=== PATIENT | female | born 1950 | race Caucasian/White ===

== ENCOUNTER → 2016-11-17 | Outpatient (CLI) | payer MEDICARE ==
[2014-08-12 13:10] VITALS: BP 116/72
[~2016-11-17] MED LIST: IBUP-1007 PO; LEVO75TA5 PO; LORA-434 PO; OMEP40CA5 PO; PARO20TA55 PO
--- NOTE | 2016-11-20 09:40 | EKG ---
[facility] [address] [place] [address] Test Date: 2016-11-17 Test Time: 07:38:09 Pat Name: INDRA ABRAHAM Department: Room: Gender: F Frameman: Shanel Damon : 1950 Requested By: SCOTT HOOVER Order Number: [id number] Reading MD: Scott Hoover Interpretive Statements Pt in sinus rhythm with PAC's. No significant dysrhythmia Electronically Signed On 11-21-2016 14:17:05 CDT by Scott Hoover
== END | disposition home or self-care (01) ==
LOC: EKG 12:48
PROVIDERS: ATTEND Family Medicine
DX: R00.2 Palpitations (principal)
CPT/HCPCS: 93225; 93226

== ENCOUNTER → 2017-01-14 | Outpatient (CLI) | payer MEDICARE ==
[2014-08-12 13:10] VITALS: BP 116/72
[~2017-01-14] MED LIST changes: +BUPIVACAINE MPF 0.5% 10 ML VIAL for KCIC. IJ ONE; +CITA10TA4 PO; +IOHEXOL 300 MG/ML 10ML VIAL. INT ART ONE; +LIDOCAINE 1% Multi-Dose 20 ML VIAL. ID ONE; +methylPREDNISolone ACETATE 40 MG/ML VIAL. INT ART ONE
--- NOTE | 2017-01-14 13:48 | KCIC ---
EXAM: Fluoroscopic guided therapeutic right hip injection. HISTORY: Pain for TECHNIQUE: The risks of the procedure were discussed with the patient and written and verbal consent was obtained. A time out was performed. Fluoroscopic imaging of the right hip was performed and a site overlying the joint space was selected for needle entry. The skin overlying this region was sterilely prepped, draped and infiltrated with 1% lidocaine. A spinal needle was then advanced into the joint space with fluoroscopic guidance. A solution containing 2 cc Depo-Medrol, 4 cc Marcaine, 4 cc Omnipaque 304 cc lidocaine was injected into the joint space. Fluoroscopic images demonstrate intraarticular accumulation of contrast. The needle was removed and a sterile bandage was placed at the needle entry site. The patient tolerated the procedure without difficulty and was discharged in stable condition. The total fluoroscopy time was 34 seconds. A single fluoroscopic image was obtained. IMPRESSION: Successful fluoroscopic guided therapeutic right hip injection. Electronically signed by: Sophia Eli MD (01/14/2017 1:44 PM)
== END | disposition home or self-care (01) ==
LOC: KCIC 12:31
PROVIDERS: ATTEND Nurse Practitioner Gerontology
DX: M25.551 Pain in right hip (principal); G89.29 Other chronic pain
CPT/HCPCS: 20610; 77002; Q9967

== ENCOUNTER → 2017-06-30 | Outpatient (CLI) | payer MEDICARE ==
[2014-08-12 13:10] VITALS: BP 116/72
[~2017-06-30] VITALS: Ht 167.6 cm; Wt 89.4 kg
[~2017-06-30] MED LIST changes: -BUPIVACAINE MPF 0.5% 10 ML VIAL for KCIC. IJ ONE; -IOHEXOL 300 MG/ML 10ML VIAL. INT ART ONE; -LIDOCAINE 1% Multi-Dose 20 ML VIAL. ID ONE; -PARO20TA55 PO; +PARO20TA99 PO; +SINCALIDE 1.8 MCG in IV NORMAL SALINE 50ML 30 ML IV ONE; -methylPREDNISolone ACETATE 40 MG/ML VIAL. INT ART ONE
--- NOTE | 2017-06-30 15:49 | RAD ---
Radionuclide hepatobiliary scan with gallbladder ejection fraction, 06/30/2017: History: Gallstones, abdominal pain Following IV injection of 5.2 mCi of technetium 99m Choletec there was prompt uptake of the radionuclide from the blood stream by the liver. Activity is present in the bile ducts and gallbladder at 15 minutes. Initial imaging obtained out to one hour showed increasing activity in the gallbladder without extension into the small bowel. Following IV injection of 1.8 mcg of cholecystokinin, additional imaging was performed. There is good gallbladder emptying with the gallbladder ejection fraction calculated at 93%. Small bowel activity did develop after the cholecystokinin injection. IMPRESSION: 1. No evidence of cystic duct or common bile duct obstruction. 2. The gallbladder ejection fraction is 93%.
== END | disposition home or self-care (01) ==
LOC: NM 10:11
PROVIDERS: ATTEND Physician Assistant Medical
DX: K80.20 Calculus of gallbladder without cholecystitis without obstruction (principal)
CPT/HCPCS: 78226; 96374; 96375; A9537; J2805

== ENCOUNTER → 2017-07-27 | Outpatient (CLI) | payer MEDICARE ==
[2014-08-12 13:10] VITALS: BP 116/72
[~2017-07-27] MED LIST changes: -SINCALIDE 1.8 MCG in IV NORMAL SALINE 50ML 30 ML IV ONE
--- NOTE | 2017-07-27 16:21 | KCIC ---
CERVICAL SPINE 5V History: Chronic neck pain, cervical stenosis Comparison: None. Findings: 5 views cervical spine are submitted. There is moderate to severe degenerative disc disease C5-C6 and C6-7 and to lesser degree at C3-4 and C4-5. There is spondylosis at the same levels. There is mild reversal of the lordotic curvature centered at C3-4. Cervical vertebral body stature and AP alignment are adequate. There is uncovertebral degenerative change which contributes to neural foramina compromise greatest on the right at C4-5, C5-C6 and to lesser degree C3-4 and also on the left at C5-C6 and to lesser degree C4-5 and C3-4. There is multilevel facet degenerative change. Impression: 1. There is multilevel cervical neural foramina compromise due to facet and uncovertebral degenerative change. 2. The is multilevel degenerative disc disease and spondylosis greatest C5-C6 and C6-7 and to lesser degree at C4-5 and C3-4. Electronically signed by: Espinoza Greenfield MD (07/27/2017 4:18 PM) [facility]-[id number]
== END | disposition home or self-care (01) ==
LOC: KCIC 15:48
PROVIDERS: ATTEND Family Medicine
DX: M48.02 Spinal stenosis, cervical region (principal); M50.322 Other cervical disc degeneration at C5-C6 level; M50.323 Other cervical disc degeneration at C6-C7 level; M47.892 Other spondylosis, cervical region
CPT/HCPCS: 72050

== ENCOUNTER → 2017-10-28 | Outpatient (CLI) | payer MEDICARE | END | disposition home or self-care (01) | LOC: KCIC CT 12:58 | DX: J32.9 Chronic sinusitis, unspecified (principal); K02.9 Dental caries, unspecified; K04.7 Periapical abscess without sinus | CPT/HCPCS: 70486 ==

== ENCOUNTER 2020-06-16 16:04 | Emergency (ER) | payer MEDICARE ==
[~2020-06-16] VITALS: Ht 167.6 cm; Wt 95.0 kg
[~2020-06-16 16:04] MED LIST changes: +OMEP40CA45 PO; -OMEP40CA5 PO
[2020-06-16 16:30] VITALS: BP 149/63
--- NOTE | 2020-06-16 17:06 | PHYS DOC ---
Past Medical History Past Medical History: Anxiety, Arthritis, GERD, Hypothyroid, Other Additional Past Medical Histor: insomnia,gallstones,tendonitis-rt.hip, knee,shoulder Past Surgical History: Other Additional Past Surgical Histo: Right total knee, right hip, bunionectomy Smoking Status: Former Smoker Alcohol Use: None Drug Use: None General Adult EDM: Chief Complaint: LOWER EXT PAIN HPI: HPI: 69-year-old female past medical history significant for anxiety depression, GERD with chronic persistent osteoarthritis, presents the ED with complaints of worsening left anterior knee pain that started shortly after patient finished physical therapy session (has had only 2-3 sessions). Patient has had known left knee osteoarthritis for over 5 years. Denies any blunt trauma or known exacerbating incident that worsened her pain. Is concerned she tore her meniscus and is requesting a steroid injection. Follows with Dr. Ortiz, orthopedic surgery at [facility] and last had a steroid joint injection in February or March of this year. Is also requesting a referral so that patient can get into see Dr. Ortiz sooner. Does not follow with pain management. Takes Motrin 800mgs 1-2 times per day and has been applying warm compresses and following "RICE" instructions. Walks with a cane and states ever since she had her right hip replaced her left leg has been shorter than her right. Is able to bear weight on left knee, cannot fully straighten left knee. No unilateral lower extremity edema, rash, joint swelling or fever. Review of Systems: Review of Systems: Constitutional: Denies fever or chills. [] Eyes: Denies change in visual acuity. [] HENT: Denies nasal congestion or sore throat. [] Respiratory: Denies cough or shortness of breath. [] Cardiovascular: Denies chest pain or edema. [] GI: Denies abdominal pain, nausea, vomiting, bloody stools or diarrhea. [] : Denies dysuria or hematuria Musculoskeletal: Denies back pain or cva ttp Integument: Denies rash. [] Neurologic: Denies headache, focal weakness or sensory changes. [] Endocrine: Denies polyuria or polydipsia. [] Lymphatic: Denies swollen glands. [] Psychiatric: Denies depression or anxiety. [] Heart Score: Risk Factors: Risk Factors: DM, Current or recent (<one month) smoker, HTN, HLP, family history of CAD, obesity. Risk Scores: Score 0 - 3: 2.5% MACE over next 6 weeks - Discharge Home Score 4 - 6: 20.3% MACE over next 6 weeks - Admit for Clinical Observation Score 7 - 10: 72.7% MACE over next 6 weeks - Early Invasive Strategies Allergies: Allergies: Allergies Coded Allergies Type Severity Reaction Last Updated Verified amoxicillin Allergy Severe nausea and vomiting 08/12/14 Yes clavulanic acid Allergy Severe nausea and vomiting 08/12/14 Yes naproxen Allergy Intermediate nausea and vomiting. 08/12/14 Yes propoxyphene Allergy Intermediate "blood feels like it's on fire" 08/12/14 Yes Physical Exam: PE: Constitutional: Well developed, well nourished, no acute distress, non-toxic appearance. [] HENT: Normocephalic, atraumatic, Eyes: EOMI, conjunctiva normal, no discharge. [] Neck: Normal range of motion, supple, Cardiovascular: S1/2 present Lungs & Thorax: bl equal chest rise, speaking in full sentences Abdomen: soft, no tenderness, Skin: Warm, dry, no erythema, no rash. [] Back: No tenderness, no CVA tenderness. [] Extremities: left anterior patella ttp - no joint effusion/warmth/erythema, bears weight on left leg/walks with cane, no left fibular head/left hip or left ankle pain, pain worsens with left knee extension Neurologic: Alert and oriented X 3, normal motor function, normal sensory function, no focal deficits noted. [] Psychologic: Affect normal, judgement normal, mood normal. [] Current Patient Data: Vital Signs: Vital Signs Date Time Temp Pulse Resp B/P (MAP) Pulse Ox O2 Delivery O2 Flow Rate FiO2 06/16/20 16:30 97.8 78 18 149/63 (91) 95 Room Air 97.8 EKG: EKG: [] Radiology/Procedures: Radiology/Procedures: IMAGING REPORT Signed PATIENT: INDRA ABRAHAMCOUNT: [id number] : 1950 LOCATION: ER AGE: 69 SEX: F EXAM STATUS: REG ER ORD. PHYSICIAN: ABIEL MCCOY DO REASON: left knee pain PROCEDURE: KNEE LEFT 3V Examination: 3 views of the left knee HISTORY: History of left knee pain COMPARISON: None available. Findings: Severe joint space loss identified in the medial, lateral, patellofemoral compartments most in the patellofemoral compartment likely degenerative changes. Moderate osteophyte formation identified in the medial, lateral, patellofemoral compartments. There is a small bony density identified in the medial compartment could be a loose body or osteophyte. Impression: 1.Severe tricompartmental degenerative changes. 2. There is a small bony density identified in the medial compartment could be a loose body or osteophyte. Electronically signed by: Ottoniel Zimmerman MD (06/16/2020 5:35 PM) [id number] DICTATED and SIGNED BY: OTTONIEL ZIMMERMAN MD DATE: 06/16/20 1735 Course & Med Decision Making: Course & Med Decision Making Pertinent Labs and Imaging studies reviewed. (See chart for details) Concern for exacerbation of left knee osteoarthritis after increase physical activity and starting physical therapy. Patient with no obvious deformity or signs of septic arthritis. Will prescribe Lidoderm patches-patient states these worked for her right knee. Will also refer to pain management and back to her orthopedic surgeon for MRI to evaluate for meniscal injury. Strict ED return precautions were given for septic joint or compartment syndrome symptoms. encouraged urgent outpatient follow-up with PMD and Ortho. Life-threatening processes were considered but are low suspicion at this time, given history and physical exam. Pt was educated on all prescription medications and adverse effe cts. All patient's questions were answered and pt was stable at time of discharge. Life/limb-threatening differential includes but is not limited to, fracture, dislocation, laceration, osteomyelitis, compartment syndrome, neurovascular injury or deficit, infection (abscess, cellulitis, septic arthritis), head/neck trauma, tendon or ligament injury. I spoken with the patient and her caregivers. I explained the patient's condition, diagnoses and treatment plan based on the information available to me at this time. I have answered the patient and her caregiver's questions and addressed any concerns. The patient and her caregivers have a good understanding of patient's diagnosis, condition and treatment plan as can be expected at this point. Vital signs have been stable. Patient's condition is stable and appropriate for discharge from the emergency department. Patient will pursue further outpatient evaluation with primary care physician or other designated or consulting physician as outlined in the discharge instructions. The patient and/or caregivers are agreeable to this plan of care and follow-up instructions have been explained in detail. The patient and/or caregivers have received these instructions in written form and have expressed an understanding of the discharge instructions. The patient and/or caregivers are aware that any significant change of condition or worsening of symptoms should prompt immediate return to this or the closest emergency department or call to 1. Dane Disclaimer: Dane Disclaimer: This electronic medical record was generated, in whole or in part, using a voice recognition dictation system. Departure Departure Impression: Primary Impression: Osteoarthritis of left knee Disposition: 01 DC HOME SELF CARE/HOMELESS Condition: STABLE Referrals: RENETTA OLMEDO MD (PCP) Patient Instructions: Osteoarthritis Additional Instructions: FOLLOW UP WITH PAIN MANAGEMENT: [facility] Address: [address] [place] [address] EMERGENCY DEPARTMENT GENERAL DISCHARGE INSTRUCTIONS Thank you for coming to [facility] Emergency Department (ED) today and trusting us with you care. We trust that you had a positive experience in our Emergency Department. If you wish to speak to the department management, you may call the Director at [phone]. YOUR FOLLOW UP INSTRUCTIONS ARE FOLLOWS: 1. Do you have a private Doctor? If you do not have a private doctor, please ask for a resource list of physicians or clinics that may be able to assist you with follow up care. 2. The Emergency Physicain has interpreted your x-rays. The X-Ray specialist will also review them. If there is a change in the findings, you will be notified in 48 hours when at all possible. 3. A lab test or culture has been done, your results will be reviewed and you will be notified if you need a change in treatment. ADDITIONAL INSTRUCTIONS AND INFORMATION: 1. Your care today has been supervised by a physician who is specially trained in emergency care. Many problems require more than one evaluation for a complete diagnosis and treatment. We recommend that you schedule your follow up appointment as recommended to ensure complete treatment of you illness or injury. If you are unable to obtain follow up care and continue to have a problem, or if your condition worsens, we recommend that you return to the ED. 2. We are not able to safely determine your condition over the phone nor are we able to give sound medical advice over the phone. For these safety reasons, if you call for medical advice we will ask you to come to the ED for further evaluation. 3. If you have any questions regarding these discharge instructions please call the ED at [phone]. SAFETY INFORMATION: In the interest of safety, wellness, and injury prevention; we encourage you to wear your sealbelt, if you smoke; quite smoking, and we encourage family to use a protective helmet for bicycling and other sporting events that present an increased risk for head injury. IF YOUR SYMPTOMS WORSEN OR NEW SYMPTOMS DEVELOP, OR YOU HAVE CONCERNS ABOUT YOUR CONDITION; OR IF YOUR CONDITION WORSENS WHILE YOU ARE WAITING FOR YOUR FOLLOW UP APPOINTMENT; EITHER CONTACT YOUR PRIMARY CARE DOCTOR, THE PHYSICIAN WHOSE NAME AND NUMBER YOU WERE GIVEN, OR RETURN TO THE ED IMMEDIATELY. Scripts Lidocaine (Lido Sebastian) 1 Each Adh..patch 1 EACH TP DAILY for pain for 4 Days, #4 PATCH apply 1 patch daily for 12 hours, remove the additional 12 hours, may repeat 3 times Prov: ABIEL MCCOY DO 06/16/20 ABIEL MCCOY DO Jun 16, 2020 17:06
--- NOTE | 2020-06-16 17:39 | RAD ---
Examination: 3 views of the left knee HISTORY: History of left knee pain COMPARISON: None available. Findings: Severe joint space loss identified in the medial, lateral, patellofemoral compartments most in the patellofemoral compartment likely degenerative changes. Moderate osteophyte formation identified in the medial, lateral, patellofemoral compartments. There is a small bony density identified in the medial compartment could be a loose body or osteophyte. Impression: 1.Severe tricompartmental degenerative changes. 2. There is a small bony density identified in the medial compartment could be a loose body or osteophyte. Electronically signed by: Ottoniel Zimmerman MD (06/16/2020 5:35 PM) [id number]
[2020-06-16] MEDS ORDERED: LIDO1ADH78 TP (17:45)
== END 2020-06-16 17:48 | disposition home or self-care (01) ==
LOC: ER 16:04
DX: M17.12 Unilateral primary osteoarthritis, left knee (principal); K21.9 Gastro-esophageal reflux disease without esophagitis; E03.9 Hypothyroidism, unspecified; Z87.891 Personal history of nicotine dependence; Z88.1 Allergy status to other antibiotic agents; Z88.5 Allergy status to narcotic agent; Z88.8 Allergy status to other drugs, medicaments and biological substances
CPT/HCPCS: 73562; 99284

== ENCOUNTER → 2020-10-25 | Outpatient (CLI) | payer MEDICARE ==
[~2020-10-25] MED LIST changes: +LIDO1ADH78 TP
--- NOTE | 2020-10-25 15:18 | KCIC ---
EXAM: Bilateral knees, 3 views. HISTORY: Pain. COMPARISON: 07/17/2016 FINDINGS: 3 views of both knees are obtained. There is a right knee arthroplasty in expected position . There is no evidence of arthroplasty loosening. There is no significant right knee effusion. There is severe medial compartment joint space narrowing of the left knee and moderate to severe left knee tricompartmental spurring. There is left genu varus. There is trace left knee joint fluid without a s ignificant effusion. IMPRESSION: 1. Severe medial and moderate to severe lateral and patellofemoral compartment osteoarthritis of the left knee with mild genu varus. 2. Right knee arthroplasty in expected position. Electronically signed by: Sophia Eli MD (10/25/2020 3:15 PM) [id number]
== END ==
LOC: KCIC 14:49
PROVIDERS: ATTEND Physician Assistant Medical
DX: M17.12 Unilateral primary osteoarthritis, left knee (principal); Z96.651 Presence of right artificial knee joint
CPT/HCPCS: 73562-50

== ENCOUNTER → 2020-12-03 | Outpatient (CLI) | payer MEDICARE ==
--- NOTE | 2020-12-03 16:57 | KCIC ---
EXAM: Bilateral hands, 3 views. HISTORY: Pain. COMPARISON: None. FINDINGS: 3 views of both hands are obtained. There is no acute fracture, dislocation or subluxation. There is mild left first carpal metacarpal joint spurring and moderate right and mild left first int erphalangeal joint spurring. There are few tiny corticated ossicles adjacent to the proximal and dist al interphalangeal joints and carpometacarpal joints which are likely degenerative. There is a small cyst at the base of the right fifth proximal phalanx. There is a bone island within the distal left r adius.. IMPRESSION: 1. Mild osteoarthritis involving the left first carpal metacarpal joint and first interphalangeal janneth nt and moderate osteoarthritis involving the right first interphalangeal joint. There is additional m inimal osteoarthritis involving both hands. 2. No acute osseous finding. Electronically signed by: Sophia Eli MD (12/03/2020 4:54 PM) [id number]
--- NOTE | 2020-12-04 08:17 | KCIC ---
EXAM: Bilateral feet, 3 views. HISTORY: Pain. COMPARISON: None. FINDINGS: 3 views of both feet are obtained. There are postoperative changes involving the right firs t metatarsal head due to bunionectomy surgery. There is moderate bilateral first metatarsal phalangea l joint spurring. There are small right greater than left plantar spurs and there is ossification christina ng the right plantar fascia. There is an incidental prominent right os trigonum. IMPRESSION: 1. Moderate bilateral first metatarsal phalangeal joint osteoarthritis and findings consistent with r ight bunionectomy surgery. 2. Small right greater than left plantar spurs and ossification along the right plantar fascia. Electronically signed by: Sophia Eli MD (12/04/2020 8:15 AM) [id number]
== END ==
LOC: KCIC 16:14
PROVIDERS: ATTEND Internal Medicine Rheumatology
DX: M18.0 Bilateral primary osteoarthritis of first carpometacarpal joints (principal); M77.31 Calcaneal spur, right foot
CPT/HCPCS: 73130-50; 73630-50

== ENCOUNTER → 2021-08-29 | Outpatient (CLI) | payer MEDICARE ==
[~2021-08-29] MED LIST changes: -CITA10TA4 PO; +CITA10TA5 PO; -OMEP40CA45 PO; +OMEP40CA7 PO
--- NOTE | 2021-08-29 16:53 | KCIC ---
EXAM: Left knee, 3 views. HISTORY: Pain. Fall. COMPARISON: None. FINDINGS: 3 views of the left knee are obtained. There is medial compartment joint space narrowing an d severe tricompartment marginal spurring. There is slight medial and lateral compartment chondrocalc inosis. There is a small joint effusion. There is enthesopathy along the patella. There is a small co rtical depression along the articular aspect of the medial femoral condyle. IMPRESSION: 1. Moderate to severe medial compartment predominant tricompartmental osteoarthritis of the left knee with small joint effusion. 2. No acute osseous finding. Electronically signed by: Sophia Eli MD (08/29/2021 4:51 PM) [id number]
--- NOTE | 2021-08-29 16:54 | KCIC ---
EXAM: Lumbar spine, 5 views. HISTORY: Pain. Fall. COMPARISON: None. FINDINGS: 5 views of the lumbar spine are obtained. There is mild lumbar dextroscoliosis. There is 3 mm grade 1 anterolisthesis of L3 on L4 and L5 and minimal retrolisthesis of L4 on L5. There is degene rative endplate remodeling with disc space narrowing and osteophytosis primarily at L4-L5, and to a l aranza extent, L5-S1. There is no fracture. There is advanced facet arthropathy at the lower lumbar le vels. There is a right hip arthroplasty. IMPRESSION: Multilevel degenerative change, primarily at L4-L5 and L5-S1. No acute osseous finding. Electronically signed by: Sophia Eli MD (08/29/2021 4:52 PM) [id number]
--- NOTE | 2021-08-29 16:56 | KCIC ---
EXAM: Pelvis, single view. HISTORY: Fall. Pain. COMPARISON: None. FINDINGS: A frontal view of the pelvis is obtained. There is a right hip arthroplasty in expected pos ition. There is no fracture, dislocation or subluxation. There is degenerative change involving the l ower lumbar spine. IMPRESSION: No acute osseous finding. Right hip arthroplasty in expected position. Electronically signed by: Sophia Eli MD (08/29/2021 4:54 PM) [id number]
== END ==
LOC: KCIC 15:50
PROVIDERS: ATTEND Family Medicine
DX: M47.817 Spondylosis without myelopathy or radiculopathy, lumbosacral region (principal); M43.16 Spondylolisthesis, lumbar region; M48.07 Spinal stenosis, lumbosacral region; M25.78 Osteophyte, vertebrae; M48.8X6 Other specified spondylopathies, lumbar region; M17.12 Unilateral primary osteoarthritis, left knee; M25.462 Effusion, left knee; M11.262 Other chondrocalcinosis, left knee; W19.XXXA Unspecified fall, initial encounter
CPT/HCPCS: 72110; 72170; 73562